=== PATIENT | female | born 1985 | race Caucasian/White ===

== ENCOUNTER 2024-05-03 17:00 | Emergency (ER) | payer MEDICAID, SELFPAY ==
--- NOTE | ~2024-05-03 | XR_ITS ---
CLINICAL HISTORY: redness. swelling. osteo? 2 view right forearm Comparison: None Findings: No fractures or dislocations. No joint effusion. No significant arthritic change. No radiopaque foreign body. IMPRESSION: 1. Normal right forearm This document has been electronically signed by: Jean-Claude Singh MD on 05/03/2024 18:29:05
[2024-05-03 17:13] VITALS: BP 141/96; PULSE 100; RESP 19; TEMP 36.5; O2SAT 99; BMI 38.1
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
[2024-05-03 18:58] LABS: PLT CLUMP 1; SCAN SMEAR FLAG 1
[2024-05-03 18:59] LABS: Basophils Absolute Auto 0.1 X10*3/uL (0.0-0.2); Basophils Percent Auto 0.5 % (0-2); Eosinophils Absolute Auto 0.6 X10*3/uL (0.0-0.4); Eosinophils Percent Auto 6.2 % (0-4); Hematocrit 45.5 % (37.0-47.0); Hemoglobin 15.3 g/dl (12.0-16.0); Imm Gran Abs Auto 0.03 X10*3/uL (0.00-0.03); Imm Gran Pct Auto 0.3 % (0.0-0.4); Lymphocytes Absolute Auto 2.6 X10*3/uL (1.2-4.9); Lymphocytes Percent Auto 25.2 % (20-40); MANUAL DIFF FLAG SCAN; Mean Corpuscular HGB Conc 33.6 g/dl (31.0-35.0); Mean Corpuscular Hemoglobin 30.4 pg (27.0-33.0); Mean Corpuscular Volume 90.3 fL (80.0-98.0); Mean Platelet Volume 11.2 fL (9.4-12.3); Monocytes Absolute Auto 0.7 X10*3/uL (0.1-1.2); Monocytes Percent Auto 6.7 % (2-11); Neutrophils Absolute Auto 6.3 x10*3/uL (2.0-8.3); Neutrophils Percent Auto 61.1 % (45-73); Red Blood Count 5.04 X10*6/uL (4.20-5.50)
[2024-05-03 19:11] LABS: Lactic Acid 1.6 mmol/L (0.5-2.0)
[2024-05-03 19:12] LABS: Alanine Aminotransferase 21 U/L (0-31); Albumin Level 4.6 g/dL (3.5-5.0); Alkaline Phosphatase 62 U/L (39-117); Anion Gap 15 (12-20); Aspartate Amino Transferase 20 U/L (5-31); Bilirubin Total 0.3 mg/dL (0.0-1.0); Blood Urea Nitrogen 13 mg/dL (9-16); C Reactive Protein 0.67 mg/dL (< or = 0.50); Calcium 9.1 mg/dL (8.4-10.2); Carbon Dioxide 25 mmol/L (22-29); Chloride 104 mmol/L (96-108); Creatinine Clr Calc Pharmacy 94.4; Estimated Glomerular Filt Rate > 60; Glucose Random 83 mg/dL (60-115); Potassium 3.6 mmol/L (3.3-5.1); Sodium 140 mmol/L (135-145); Total Protein 8.2 g/dL (6.5-8.0)
[2024-05-03 19:17] LABS: Platelet Count 223 X10*3/uL (160-400); White Blood Count 10.3 X10*3/uL (4.8-10.8)
[2024-05-03 19:18] LABS: SLIDE REVIEW VERIFIED
[2024-05-03 19:37] LABS: Erythrocyte Sedimentation Rate 10 MM/HR (0-20)
[2024-05-03] MEDS: Bacitracin Oint 0.9 GM PACKET 1 APPL TOPICAL (21:40)
[2024-05-03] MEDS: Sulfamethox/Trimeth 800/160 TABLET 1 TAB PO (21:40)
[2024-05-03 22:03] VITALS: BP 141/96; PULSE 100; RESP 19; TEMP 36.5; O2SAT 99
== END 2024-05-03 22:04 | disposition home or self-care (01) ==
PROVIDERS: Physician Assistant; Emergency Provider Emergency Medicine; PCP Internal Medicine
DX: L03.113 Cellulitis of right upper limb (principal); M79.631 Pain in right forearm; T22.211A Burn of second degree of right forearm, initial encounter; T31.0 Burns involving less than 10% of body surface; Z79.899 Other long term (current) drug therapy
CPT/HCPCS: 36415; 73090; 80053; 83605; 85025; 85652; 86140; 87040; 99283

== ENCOUNTER → 2024-05-03 17:16 | Outpatient (BNV) | payer MEDICAID, SELFPAY | PROVIDERS: PCP Internal Medicine; Visit Provider Specialist | DX: R22.31 Localized swelling, mass and lump, right upper limb (principal) | CPT/HCPCS: 73090 ==

== ENCOUNTER 2024-05-07 21:24 | Emergency (ER) | payer MEDICAID, SELFPAY ==
[2024-05-07 22:15] VITALS: BP 134/80; PULSE 88; RESP 18; TEMP 36.4; O2SAT 95; BMI 38.7
--- NOTE | 2024-05-07 22:43 | MHC.EDTECH ---
Patient brought into triage area,labs drawn and sent to lab.
[2024-05-07 22:51] LABS: MANUAL DIFF FLAG NO
[2024-05-07 22:52] LABS: Basophils Absolute Auto 0.1 X10*3/uL (0.0-0.2); Basophils Percent Auto 0.7 % (0-2); Eosinophils Absolute Auto 0.6 X10*3/uL (0.0-0.4); Eosinophils Percent Auto 5.9 % (0-4); Hematocrit 43.6 % (37.0-47.0); Hemoglobin 14.6 g/dl (12.0-16.0); Imm Gran Abs Auto 0.03 X10*3/uL (0.00-0.03); Imm Gran Pct Auto 0.3 % (0.0-0.4); Lymphocytes Absolute Auto 3.3 X10*3/uL (1.2-4.9); Lymphocytes Percent Auto 33.2 % (20-40); Mean Corpuscular HGB Conc 33.5 g/dl (31.0-35.0); Mean Corpuscular Hemoglobin 30.5 pg (27.0-33.0); Mean Platelet Volume 10.4 fL (9.4-12.3); Monocytes Absolute Auto 0.7 X10*3/uL (0.1-1.2); Monocytes Percent Auto 6.9 % (2-11); Neutrophils Absolute Auto 5.2 x10*3/uL (2.0-8.3); Platelet Count 307 X10*3/uL (160-400); Red Blood Count 4.79 X10*6/uL (4.20-5.50); Red Cell Distribution Width 11.9 % (11.0-16.0); White Blood Count 9.8 X10*3/uL (4.8-10.8)
[2024-05-07 23:10] LABS: Alanine Aminotransferase 24 U/L (0-31); Albumin Level 4.5 g/dL (3.5-5.0); Alkaline Phosphatase 61 U/L (39-117); Anion Gap 13 (12-20); Aspartate Amino Transferase 22 U/L (5-31); Bilirubin Total 0.5 mg/dL (0.0-1.0); Blood Urea Nitrogen 13 mg/dL (9-16); Carbon Dioxide 23 mmol/L (22-29); Chloride 106 mmol/L (96-108); Creatinine Clr Calc Pharmacy 100.3; Estimated Glomerular Filt Rate > 60; Glucose Random 89 mg/dL (60-115); Potassium 3.9 mmol/L (3.3-5.1); Sodium 138 mmol/L (135-145); Total Protein 7.9 g/dL (6.5-8.0)
[2024-05-07 23:40] VITALS: BP 114/74; PULSE 84; RESP 18; TEMP 36.5; O2SAT 100
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
[2024-05-08] MEDS: predniSONE 20 MG TABLET 60 MG PO (01:36)
[2024-05-08] MEDS: Doxycycline Monohydrate 100 MG CAPSULE PO (01:36)
[2024-05-08 01:46] VITALS: BP 118/82; PULSE 82; RESP 16; TEMP 36.3; O2SAT 98
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
[2024-05-08 01:52] VITALS: BP 118/82; PULSE 98; RESP 16; TEMP 36.3; O2SAT 99
== END 2024-05-08 01:53 | disposition home or self-care (01) ==
PROVIDERS: Emergency Provider Internal Medicine; PCP Internal Medicine
DX: L25.9 Unspecified contact dermatitis, unspecified cause (principal)
CPT/HCPCS: 36415; 80053; 83605; 85025; 99283; 99284